=== PATIENT | male | born 1975 | race African-American/Black ===

== ENCOUNTER 2022-01-23 13:23 | Emergency (ER) | payer SELFPAY ==
[2022-01-23 13:24] VITALS: BP 144/89; PULSE 67; RESP 16; TEMP 36.7; O2SAT 100
--- NOTE | 2022-01-23 13:56 | RAD_ITS ---
EXAM: XR CHEST, 1 VIEW CLINICAL INDICATION: chest pain TECHNIQUE: Frontal view of the chest. This report was created using [employer] report generation technology. COMPARISON: None. FINDINGS: LUNGS AND PLEURAL SPACES: Unremarkable. No consolidation or edema. No pneumothorax. No effusion. HEART: Unremarkable. Cardiac silhouette not enlarged. MEDIASTINUM: Central airways and mediastinal contour are unremarkable. BONES/JOINTS: Unremarkable. SOFT TISSUES: Unremarkable. RAD/Chest 1 View (Portable) IMPRESSION: No radiographic evidence of acute cardiopulmonary disease. Electronically Signed: Eddi Dawson MD at 14:44 EDT ,
--- NOTE | 2022-01-23 13:56 | EKG12_ITS ---
Test Reason : CP Blood Pressure : / mmHG Vent. Rate : 062 BPM Atrial Rate : 062 BPM P-R Int : 170 ms QRS Dur : 070 ms QT Int : 368 ms P-R-T Axes : 043 016 036 degrees QTc Int : 373 ms Normal sinus rhythm Septal infarct , age undetermined Abnormal ECG Confirmed by TAQUERIA THOMPSON, LEIF ([id number]), editor at large SHENA HINTON ([id number]) on 01/24/2022 9:49:01 AM Referred By: ZACARIAS Confirmed By:LEIF MENG MD
[2022-01-23 14:18] LABS: Absolute Lymphocyte Count 1.63 X10^3/uL (0.83-4.51); Absolute Neutrophil Count 2.4 X10^3/uL (2.0-7.7); Basophil# 0.02 X10^3/uL; Basophil% 0.4 % (0-1); Eosinophil# 0.18 X10^3/uL; Eosinophils% 3.9 % (0-5); Hematocrit 42.2 % (40-54); Hemoglobin 13.8 g/dL (13.0-16.5); Lymphocyte # 1.63 X10^3/ul (0.83-4.51); Lymphocyte % 35.3 % (19-41); Mean Corp Hgb Conc 32.7 g/dL (32-36); Mean Corpuscular Hgb 26.5 pg (27.0-32.0); Mean Corpuscular Volume 81.2 fL (80-94); Mean Platelet Vol. 10.8 fl (6.2-12.0); Monocyte# 0.39 X10^3/uL; Monocyte% 8.4 % (0-10); NRBC Flagged by Analyzer 0 % (0-5); Neutrophil # 2.39 X10^3/uL (2.7-7.7); Neutrophil % 51.8 % (47-70); Platelet Count 221 K/mm3 (150-450); RBC Distribution Width CV 12.9 % (11.6-14.6); RBC Distribution Width SD 37.9 fl (35.1-43.9); White Blood Count 4.6 K/mm3 (4.4-11.0)
[2022-01-23 14:26] LABS: Anion Gap 5 (5-15); BUN 18 mg/dL (7-18); BUN/Creat Ratio 16.1 RATIO (10-20); Calcium,Total 9.4 mg/dL (8.5-10.1); Chloride 106 mmol/L (98-107); Creatinine, Serum 1.12 mg/dL (0.70-1.30); EST Glomerular Filtration Rate 74 mL/min (>60); Est Glom Filt Rate - Afr Amer 90 mL/min (>60); Estimated Creatinine Clearance 76.23 ml/min; Glucose 100 mg/dL (74-106); Sodium Level 141 mmol/L (136-145); Troponin-I HS (w/2H Reflex) 5 pg/mL (3.0-78.0)
[2022-01-23 15:00] VITALS: BP 147/99; PULSE 61; O2SAT 100
[2022-01-23 15:17] VITALS: BP 140/93; PULSE 65; RESP 16; O2SAT 97
--- NOTE | 2022-01-23 15:38 | ED.VIS.CHEST ---
HPI History of Present Illness Chief Complaint: Chest Pain Narrative Narrative: 46-year-old male presenting with chest pain. He states he has had this for a couple of weeks. Since retro-sternal region. He states he has had similar pains here before and he was placed on Prilosec and this did help. He states he does not take this anymore. He denies cough or shortness of breath. He denies chest pressure or pleuritic pain. He states he has no known medical problems other than history of GERD. He does state he has been under a lot of stress lately because clients are not treating him well. He stressed over money as well. He states that he has no history of DVT/PE PFSH PFS Home Medications omeprazole 40 mg capsule,delayed release 40 mg PO DAILY #60 caps 01/23/22 [Rx Last Taken Unknown] Allergy/AdvReac Type Severity Reaction Status Date / Time No Known Allergies Allergy Verified 01/23/22 13:28 Social History Smoking Status: Former smoker ROS ROS ED Constitutional Constitutional ED: Denies chills or fever(s) Eyes Eyes: Denies none or blurry vision ENT ENT ED: Denies rhinorrhea or sore throat Cardiovascular Cardiovascular: Reports as per HPI Respiratory/Chest Respiratory/Chest: Denies cough or dyspnea Gastrointestinal Gastrointestinal: Denies abdominal pain or constipation Genitourinary Genitourinary ED: Denies dysuria or hematuria Musculoskeletal Musculoskeletal: Denies arthralgias or back pain Integumentary Denies abscess or Abrasions Neurologic Neurologic: Denies headache(s) or paresthesias EXAM Physical Exam Const Vital Signs: 01/23/22 13:24 01/23/22 13:28 01/23/22 13:56 Temperature 98.0 F Temperature Source Oral Pulse Rate 67 Respiratory Rate 16 Respiratory Effort Normal Non-Labored Blood Pressure 144/89 H Blood Pressure Mean 107 Pulse Ox 100 Oxygen Delivery Method Room Air Room Air 01/23/22 15:00 01/23/22 15:17 Temperature Temperature Source Pulse Rate 61 65 Respiratory Rate 16 Respiratory Effort Blood Pressure 147/99 H 140/93 H Blood Pressure Mean 115 Pulse Ox 100 97 Oxygen Delivery Method Room Air Positive well nourished General Appearance ED: NAD; Negative for pallor HEENT Reports TM's clear and moist mucous membranes normocephalic and atraumatic Tympanic Membrane ED: Yes TM's clear Eyes PERRL and EOMs intact bilaterally Chest Wall inspection of chest normal and palpation of chest normal Resp normal respiratory effort and clear to auscultation bilaterally Auscultation: Negative for rales, rhonchi or wheezes Cardio regular rate and regular rhythm GI normal to inspection, nondistended, normoactive bowel sounds Extremity normal to inspection General Extremety ED: Negative for edema or tenderness General Extremity: Negative for edema Neuro oriented x3 and CN's II-XII intact bilaterally Sensorium / Orientation: awake and alert Motor Exam: strength 5/5 throughout Psych mental status grossly normal Skin no rashes or lesions noted and no wounds General Skin Exam: Negative for jaundice or pallor Heart Score History: Slightly/Non-Suspicious ECG: Normal Age: >45 - <65 years Risk Factors: No Risk Factors Troponin: </= Normal Limit Score: 1 MDM MDM MDM Narrative Medical decision making narrative: Patient presenting with retrosternal chest pain. He states it is similar to her previous history he has had when he ended up having ulcers. I did obtain an EKG which on my interpretation shows a normal sinus rhythm with a ventricular rate of 62 bpm without sign of ischemic change or dysrhythmia. Chest x-ray my interpretation shows no acute cardiopulmonary process and radiologist does agree. CBC and BMP are unremarkable. High-sensitivity troponin is 5 with chest pain for about 2 weeks so I do not believe he needs a second troponin. He is PERC negative. Patient amenable to restarting omeprazole for home. He was also counseled on foods to avoid. He was given follow-up with Dr. Mcmahan and his primary care physician. Return precautions discussed. Impression: 1. Chest pain noncardiac 2. History of gastric ulcers Lab Data Attestation: I reviewed the patient's lab results. Labs: Laboratory Results - last 24 hr 01/23/22 01/23/22 13:30 13:30 WBC 4.6 RBC 5.20 Hgb 13.8 Hct 42.2 MCV 81.2 MCH 26.5 L MCHC 32.7 RDW Std Deviation 37.9 RDW Coeff of Mike 12.9 Plt Count 221 MPV 10.8 Immature Gran % (Auto) 0.200 Neut % (Auto) 51.8 Lymph % (Auto) 35.3 Cassia % (Auto) 8.4 Eos % (Auto) 3.9 Baso % (Auto) 0.4 Absolute Neuts (auto) 2.4 Absolute Lymphs (auto) 1.63 Nucleated RBC % 0 Sodium 141 Potassium 4.0 Chloride 106 Carbon Dioxide 30.0 Anion Gap 5 BUN 18 Creatinine 1.12 Estim Creat Clear Calc 76.23 Est GFR (MDRD) Af Amer 90 Est GFR (MDRD) Non-Af 74 BUN/Creatinine Ratio 16.1 Glucose 100 Calcium 9.4 Troponin I High Sens 5 Radiography Diagnostic Testing: Clinical Impression(s) from Imaging Studies Chest X-Ray 01/23/22 13:56 IMPRESSION: No radiographic evidence of acute cardiopulmonary disease. Electronically Signed: Eddi Dawson MD at 14:44 EDT , Discharge Plan Triage Chief Complaint: Chest Pain ED Provider: Erick Romo Dx/Rx/DC Orders Instructions: ED Chest Pain, Noncardiac, ED Gastritis (Adult) Prescriptions: New omeprazole 40 mg capsule,delayed release(DR/EC) 40 mg PO DAILY Qty: 60 0RF Primary Care Provider: Care Physician,No Primary Referrals: Smooth Mcmahan DO [Med Staff - Active Staff] - 3-5 Days Disposition Disposition: Home, Self Care Discharge Date/Time: 01/23/22 15:22
[2022-01-23 16:01] LABS: Reflex Troponin-HS? (from REC) Y
== END 2022-01-23 15:22 | disposition home or self-care (01) ==
LOC: ED 15:21
PROVIDERS: Emergency Provider Student in an Organized Health Care Education/Training Program; Visit Provider Student in an Organized Health Care Education/Training Program
DX: R07.89 Other chest pain (principal); Z87.891 Personal history of nicotine dependence
CPT/HCPCS: 71045; 80048; 84484; 85025; 93005; 99284; A4216

== ENCOUNTER 2022-05-13 14:44 | Emergency (ER) | payer SELFPAY ==
[2022-05-13 14:45] VITALS: BP 134/64; PULSE 89; RESP 16; TEMP 36.6; O2SAT 99; BMI 29.0
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
[2022-05-13] MEDS: Ibuprofen 600 MG Tablet PO (16:21)
== END 2022-05-13 16:28 | disposition home or self-care (01) ==
PROVIDERS: Emergency Provider Emergency Medicine; Visit Provider Emergency Medicine
DX: T33.521A Superficial frostbite of right hand, initial encounter (principal); T33.522A Superficial frostbite of left hand, initial encounter; X31.XXXA Exposure to excessive natural cold, initial encounter; Y93.89 Activity, other specified; Y99.8 Other external cause status; Z87.891 Personal history of nicotine dependence
CPT/HCPCS: 99282